=== PATIENT | female | born 1980 | race Caucasian/White ===

== ENCOUNTER 2017-08-11 11:54 | Emergency (ER) | payer BC, OTHER ==
[~2017-08-11] VITALS: Ht 165.1 cm; Wt 110.8 kg
[~2017-08-11 11:54] MED LIST: OXYC-302 PO
[2017-08-11] MEDS ORDERED: KETOROLAC 30 MG/1 ML IVPush ONE (13:00)
[2017-08-11] MEDS ORDERED: METOCLOPRAMIDE 5 MG/ML, 2ML IVPush ONE (13:00)
[2017-08-11] MEDS ORDERED: SODIUM CHLORIDE 0.9% 1,000ML IVBOLUS ONE (13:00)
[2017-08-11] MEDS ORDERED: KETOROLAC 30 MG/1 ML ONE (13:01)
[2017-08-11] MEDS ORDERED: METOCLOPRAMIDE 5 MG/ML, 2ML ONE (13:01)
[2017-08-11 13:51] VITALS: BP 112/60
== END 2017-08-11 13:53 | disposition home or self-care (01) ==
LOC: ED 13:47
DX: G43.009 Migraine without aura, not intractable, without status migrainosus (principal)
CPT/HCPCS: 36415; 82375; 93005; 96361; 96374; 96375; 99285; J1885; J2765; J7030